=== PATIENT | female | born 1990 | race Asian ===

== ENCOUNTER 2017-06-23 07:07 | Inpatient (IN) | payer OTHER ==
[~2017-06-23] VITALS: Ht 165.1 cm; Wt 83.6 kg
[2017-06-23] VITALS (22 sets, daily range): BP systolic 103–140; BP diastolic 60–98; PULSE 70–90; TEMP 97.8–98.2
[2017-06-23] MEDS ORDERED: NATURAL IRON65 MG (07:57)
[2017-06-23 08:03] LABS: BASO # 0.1 (0.0-0.2); BASO % 0.4 % (0.0-2.0); EOS # 0.1 (0.0-0.7); EOS % 0.8 % (0-4.0); GRAN % 69.6 % (42.2-75.2); LYMPH # 2.8 (1.2-3.4); LYMPH % 21.9 % (20.0-51.0); MEAN CELL VOLUME 82 fl (80.0-100.0); MEAN CORPUSCULAR HGB CONC 33 g/dl (33.0-37.0); MEAN PLATELET VOLUME 11.5 fl (7.4-10.4); MONO # 0.9 (0.1-0.6); MONO % 6.8 % (1.7-9.3); PLATELET COUNT 267 K/mm3 (130-400); RED BLOOD COUNT 4.25 M/mm3 (4.10-5.30); REDCELL DISTRIBUTION WIDTH-CV 14.5 % (11.5-14.5); WHITE BLOOD COUNT 12.9 K/mm3 (4.8-10.8)
[2017-06-23 08:14] LABS: HEMATOCRIT 34.7 % (37.0-47.0); HEMOGLOBIN 11.6 g/dl (12.5-16.0); MEAN CORPUSCULAR HEMOGLOBIN 27 pg (27.0-31.0)
[2017-06-24 03:00] VITALS: BP 106/77; PULSE 87; TEMP 98.5
[2017-06-24 06:40] VITALS: BP 121/74; PULSE 74; TEMP 98.2
[2017-06-24] MEDS ORDERED: MOTRIN 800800 MG/TAB PO (10:00)
[2017-06-24] MEDS ORDERED: PERCOCET 325 MG1 TA2 PO (10:01)
== END 2017-06-24 16:10 | disposition home or self-care (01) | DRG 775 ==
LOC: LDRO 07:07 → LDR 07:20 → OB 13:45
PROVIDERS: Student in an Organized Health Care Education/Training Program
PROC: 10E0XZZ Delivery of Products of Conception, External Approach (ICD-10-PCS; principal; 2017-06-23)
PROC: 0KQM0ZZ Repair Perineum Muscle, Open Approach (ICD-10-PCS; 2017-06-23)
DX: O48.0 Post-term pregnancy (principal); O35.8XX0 Maternal care for other (suspected) fetal abnormality and damage, not applicable or unspecified; O69.81X0 Labor and delivery complicated by cord around neck, without compression, not applicable or unspecified; O70.1 Second degree perineal laceration during delivery; Z3A.40 40 weeks gestation of pregnancy; Z37.0 Single live birth
CPT/HCPCS: J2590; J7120

== ENCOUNTER → 2020-07-21 | Outpatient (CLI) | payer OTHER ==
[~2020-07-21] MED LIST: MOTRIN 800800 MG/TAB PO; NATURAL IRON65 MG; PERCOCET 325 MG1 TA2 PO
== END ==
LOC: DIA.ED
DX: O24.419 Gestational diabetes mellitus in pregnancy, unspecified control (principal)
CPT/HCPCS: G0108

== ENCOUNTER → 2020-07-28 | Outpatient (CLI) | payer OTHER | LOC: DIA.ED 09:35 | DX: O24.419 Gestational diabetes mellitus in pregnancy, unspecified control (principal) | CPT/HCPCS: G0108 ==

== ENCOUNTER → 2020-08-19 | Outpatient (CLI) | payer OTHER | LOC: DIA.ED 11:02 | DX: O24.419 Gestational diabetes mellitus in pregnancy, unspecified control (principal) | CPT/HCPCS: G0108 ==

== ENCOUNTER 2020-09-21 11:51 | Inpatient (IN) | payer OTHER ==
[2020-09-21] VITALS (36 sets, daily range): BP systolic 104–140; BP diastolic 55–96; PULSE 70–99; TEMP 97.4–98.3
[~2020-09-21] VITALS: Ht 154.9 cm; Wt 173.0 kg
--- NOTE | 2020-09-21 11:55 | NUR ---
Patient arrives via wheelchair from ER with spouse with complaints of SROM at 1100. Patient reports occasional contractions. Reports normal movement, denies bleeding. Patient changes into gown, EFM explained and placed. VS obtained. 1205- Amniotrace positive. SVE by George Lam RN 2. Patient repositioned WL and updated on plan of care. Assessment completed. Dr. Lui notified by George Lam. See physician notification. 1210- Blood glucose checked on patient's own glucometer- 99. 1220- IV started in LW, labs obtained and sent. Anya infusing, see EMAR. Consents explained and signed.
[2020-09-21 12:46] LABS: BASO % 0.4 % (0.0-2.0); EOS # 0.2 (0.0-0.7); EOS % 1.6 % (0-4.0); GRAN # 6.7 (1.4-6.5); GRAN % 70.2 % (42.2-75.2); HEMATOCRIT 37.1 % (37.0-47.0); HEMOGLOBIN 12.4 g/dl (12.5-16.0); LYMPH # 1.9 (1.2-3.4); MEAN CELL VOLUME 89 fl (80.0-100.0); MEAN CORPUSCULAR HEMOGLOBIN 30 pg (27.0-31.0); MEAN CORPUSCULAR HGB CONC 33 g/dl (33.0-37.0); MEAN PLATELET VOLUME 11.3 fl (7.4-10.4); MONO # 0.7 (0.1-0.6); MONO % 7.2 % (1.7-9.3); PLATELET COUNT 191 K/mm3 (130-400); RED BLOOD COUNT 4.15 M/mm3 (4.10-5.30); REDCELL DISTRIBUTION WIDTH-CV 14.5 % (11.5-14.5)
--- NOTE | 2020-09-21 13:15 | NUR ---
Patient declines COVID-19 swab.
--- NOTE | 2020-09-21 13:55 | NUR ---
1340: Patient sitting up for epidural placement. 1346: Lidocaine. 1347: Epidural Catheter. 1349: Test Dose given by Augustin MONDRAGON, no adverse reaction noted. 1345: Patient repositioned to left tilt.
--- NOTE | 2020-09-21 14:05 | NUR ---
Patient took own blood sugar - 85.
--- NOTE | 2020-09-21 14:25 | NUR ---
Patient comfortable with epidural. Orozco catheter placed. SVE 6100/-2. Patient repositioned to right tilt with peanut ball in place. Call light within reach. Encouraged to rest. Instructed to notify RN with rectal pressure, urge to push, or increased pain.
--- NOTE | 2020-09-21 16:00 | NUR ---
Patient resting comfortably. Repositioned to left tilt with peanut ball, head of bed elevated. Patient took own blood sugar - 89. Will recheck SVE at 1630 when Pen G #2 is due.
--- NOTE | 2020-09-21 17:20 | NUR ---
Patient starting to feel contractions, denies pain though. SVE /-1. Patient repositioned to maeve position. Patient denies needs at this time. Call light within reach.
--- NOTE | 2020-09-21 18:15 | NUR ---
Patient reports feeling "fluid come out". SVE 7/100/-1, clear fluid with exam. Patient repositioned to left tilt with peanut ball in place. Patient takes own blood sugar - 90.
--- NOTE | 2020-09-21 18:20 | NUR ---
Report to Antonio RN to assume care of patient at this time.
--- NOTE | 2020-09-21 19:56 | NUR ---
1955- SVE by this RN /+2 1957- Dr. Narayan notified of pt's status with SVE and FHR tracing reviewed. Dr. Narayan on his way to hospital for pending delivery. 2010- Dr. Narayan at the bedside. Pt set up for delivery. Pushing started. 2013- of viable male . placed on mom's abdomen. Cords clamped and cut. Care of the given to nursery RN at the bedside. 2015- of placenta. Pitocin started 333ml/hr per order and protocol. Fundus firm and lochia WNL.
--- NOTE | 2020-09-21 23:00 | NUR ---
Pt up to the bathroom with standby assist and without complications. Pt was able to void. Kalyani-care done. Pt transferred to room 214 ambulatory. Oriented to room, bed and call light within reach. Plan of care reviewed.
[2020-09-22 03:35] VITALS: BP 107/59; PULSE 89; TEMP 97.7
[2020-09-22 07:45] VITALS: BP 114/59; PULSE 80; TEMP 98.5
--- NOTE | 2020-09-22 07:45 | NUR ---
Rests in bed, alert. Ibuprofen 800 mg given per request and as ordered.
--- NOTE | 2020-09-22 09:09 | NUR ---
Initial visit; Cloth Wire Weaver offered congratulations for the of patient's son. Patient graciously acknowledged Cl[employer] Wire Weaver, though appeared to not understand [place]. Cloth Wire Weaver wishes family well.
[2020-09-22] MEDS ORDERED: MOTRIN 800800 MG/TAB PO (10:03)
[2020-09-22 13:30] VITALS: BP 100/46; PULSE 77; TEMP 98.6
[2020-09-22 17:30] VITALS: BP 111/68; PULSE 72; TEMP 98.3
--- NOTE | 2020-09-22 17:30 | NUR ---
Request pain medication. Ibuprofen 800 mg given per request and as ordered.
[2020-09-22 20:01] VITALS: BP 102/62; PULSE 78; TEMP 97.9
== END 2020-09-22 22:10 | disposition home or self-care (01) | DRG 807 ==
LOC: LDRO 11:51 → OB 12:25 → LDR 12:25 → OB 23:13
PROVIDERS: ADMIT Obstetrics & Gynecology
PROC: 10E0XZZ Delivery of Products of Conception, External Approach (ICD-10-PCS; principal; 2020-09-21)
PROC: 0KQM0ZZ Repair Perineum Muscle, Open Approach (ICD-10-PCS; 2020-09-21)
DX: O24.420 Gestational diabetes mellitus in childbirth, diet controlled (principal); Z37.0 Single live birth; O99.824 Streptococcus B carrier state complicating childbirth; O99.02 Anemia complicating childbirth; D64.9 Anemia, unspecified; O70.1 Second degree perineal laceration during delivery; Z3A.39 39 weeks gestation of pregnancy
CPT/HCPCS: J2540; J2590; J7120